=== PATIENT | male | born 1995 | race Caucasian/White ===

== ENCOUNTER 2018-09-30 16:13 | Emergency (ER) | payer SELFPAY ==
[~2018-09-30] VITALS: Ht 175.3 cm; Wt 98.4 kg
[~2018-09-30 16:13] MED LIST: SULF-222 PO
--- NOTE | 2018-09-30 17:28 | Diagnostic Imaging Report ---
INDICATION: Productive cough x 2 weeks. EXAMINATION: PA and lateral chest were obtained at 5:37 p.m. COMPARISON: 06/25/2018. FINDINGS: Heart and mediastinal silhouette are normal in appearance. The lungs are clear. There is no pneumothorax or pleural fluid. IMPRESSION: Negative chest. Dictated by: Dictated on workstation # [id number]
--- NOTE | 2018-09-30 17:52 | ED Cough/URI ---
General Chief Complaint: Respiratory Problems Stated Complaint: COUGHING PHLEM; CONGESTION Nursing Triage Note: PT AMB TO ROOM #6 W/O DIFFICULTY. A&OX4. C/O CONGESTION WITH COUGH FOR APPROX 3WKS. PT REPORTS HE HAS BEEN COUGHING UP GREEN PHLEGM WITH "RED STREAKS" FOR APPROX 1 WK. DENIES GI/ SYMPTOMS. DENIES RECENT FEVER. Source: patient Exam Limitations: no limitations History of Present Illness Date Seen by Provider: Sep 30, 2018 Time Seen by Provider: 16:35 Initial Comments 23 year old male patient who presents the emergency room with complains of congestion and cough for 3 weeks. He reports that he has had cough and phlegm for 1 week. Denies Fevers or shortness of breath. Timing/Duration: week (3 weeks) Severity/Quality: mild, productive cough Prior Episodes/Possible Cause: no prior episodes Associated Symptoms: cough, nasal congestion, nasal drainage Allergies and Home Medications Allergies Coded Allergies: No Known Drug Allergies (Unverified , 06/25/18) Home Medications Sulfamethoxazole/Trimethoprim 1 Each Tablet, 1 EACH PO BID Prescribed by: LETTY CHAVES on 06/25/18 0140 Patient Home Medication List Home Medication List Reviewed: Yes Review of Systems Review of Systems Constitutional: no symptoms reported, see HPI Respiratory: see HPI, cough, phlegm All Other Systems Reviewed Negative Unless Noted: Yes Past Soiycwi-Crahgo-Aisogs Hx Past Med/Social Hx: Reviewed Nursing Past Med/Soc Hx Patient Social History Alcohol Use: Occasionally Uses Number of Drinks Today: AA Alcohol Beverage of Choice: Beer Recreational Drug Use: Yes Drug of Choice: THC Smoking Status: Current Everyday Smoker Type Used: Cigarettes 2nd Hand Smoke Exposure: Yes Recent Foreign Travel: No Contact w/Someone Who Travel: No Recent Infectious Disease Expo: No Recent Hopitalizations: No Physical Abuse: No Sexual Abuse: No Immunizations Up To Date Tetanus Booster (TDap): Unknown Seasonal Allergies Seasonal Allergies: No Past Medical History Surgeries: Yes Orthopedic Respiratory: Yes Pneumonia Currently Using CPAP: No Currently Using BIPAP: No Cardiac: No Neurological: No Genitourinary: No Gastrointestinal: No Musculoskeletal: No Endocrine: No HEENT: No Cancer: No Psychosocial: No Integumentary: Yes Recent Skin Changes Blood Disorders: No Family Medical History Reviewed Nursing Family Hx Physical Exam Vital Signs - First Documented 09/30/18 16:36 Temp 99.0 Pulse 77 Resp 18 B/P (MAP) 140/85 (103) Pulse Ox 99 O2 Delivery Room Air Capillary Refill : Less Than 3 Seconds Height: 5'9.00" Weight: 217lbs. oz. 98.423769jv; BMI Method:Stated General Appearance: WD/WN, no apparent distress HEENT: PERRL/EOMI, normal ENT inspection, TMs normal, pharynx normal Respiratory: chest non-tender, lungs clear, normal breath sounds, no respiratory distress, no accessory muscle use, respiratory distress Cardiovascular: normal peripheral pulses, regular rate, rhythm, no edema, no gallop, no JVD, no murmur Extremities: normal capillary refill Neurologic/Psychiatric: alert, normal mood/affect, oriented x 3 Skin: normal color, warm/dry Progress/Results/Core Measures Suspected Sepsis Recent Fever Within 48 Hours: No Infection Criteria Present: None New/Unexplained Altered Menta: No Sepsis Screen: No Definite Risk SIRS Temperature:99.0 Pulse: 77 Respiratory Rate: 18 Blood Pressure 140 /85 Mean: 103 Results/Orders Micro Results Microbiology 09/30/18 Influenza Types A,B Antigen (SONNY) - Final, Complete My Orders Orders - DANIEL BAH Influenza A And B Antigens (09/30/18 16:42) Chest Pa/Lat (2 View) (09/30/18 16:43) Vital Signs/I&O 09/30/18 09/30/18 16:36 18:06 Temp 99.0 99.0 Pulse 77 67 Resp 18 18 B/P (MAP) 140/85 (103) 140/85 (103) Pulse Ox 99 99 O2 Delivery Room Air Room Air Capillary Refill : Less Than 3 Seconds Blood Pressure Mean: 103 Progress Note : Time: 17:51 Progress Note I have seen and evaluated the patient. I have informed him of normal imaging studies and laboratory findings. He agrees with plans for discharge. Return precautions were given. Diagnostic Imaging Diagonstic Imaging: Xray Plain Films/CT/US/NM/MRI: chest Comments NAME: ALEX COE [facility] REC#: [id number] PHYSICIAN: DANIEL BAH CC: DANIEL BAH; BRIANDA RUIZ MD Page 1 of 1 RADIOLOGY REPORT VIA [place], [place] CC: DANIEL BAH; BRIANDA RUIZ MD Page 1 of 1 RADIOLOGY REPORT NAME: ALEX COE MED REC#: [id number] PT STATUS: REG ER : 1995 PHYSICIAN: DANIEL BAH ADMIT DATE: 09/30/18/ER Signed Date of Exam: 09/30/18 CHEST PA/LAT (2 VIEW) INDICATION: Productive cough x 2 weeks. EXAMINATION: PA and lateral chest were obtained at 5:37 p.m. COMPARISON: 06/25/2018. FINDINGS: Heart and mediastinal silhouette are normal in appearance. The lungs are clear. There is no pneumothorax or pleural fluid. IMPRESSION: Negative chest. Dictated by: Dictated on workstation # [id number] Dict: 09/30/18 1723 Trans: 09/30/18 1730 Interpreted by: BRIANDA RUIZ MD Electronically signed by: BRIANDA RUIZ MD 09/30/18 1730 Reviewed: Reviewed by Me Departure Impression Primary Impression: Viral illness Disposition: 01 HOME, SELF-CARE Condition: Stable/Unchanged Departure-Patient Inst. Decision time for Depature: 17:51 Referrals: NO,LOCAL PHYSICIAN (PCP) Primary Care Physician Patient Instructions: Cough, Runny Nose, and the Common Cold (DC) Add. Discharge Instructions: You may continue to use [id number] cold cough and flu medications as directed by the bottle. Follow-up with her primary care provider within 1 week for recheck. Return back to the emergency room for any worsening symptoms or concerns as needed. All discharge instructions reviewed with patient and/or family. Voiced understanding. Work/School Note: Work Release Form Date Seen in the Emergency Department: Sep 30, 2018 Return to Work: Sep 30, 2018 Restrictions: No Restrictions DANIEL BAH Sep 30, 2018 17:52
[2018-09-30 18:06] VITALS: BP 140/85
== END 2018-09-30 18:06 | disposition home or self-care (01) ==
LOC: EDUNIT# 16:13 → ER 16:15
DX: B34.9 Viral infection, unspecified (principal); F12.10 Cannabis abuse, uncomplicated; F17.210 Nicotine dependence, cigarettes, uncomplicated; Z87.01 Personal history of pneumonia (recurrent)
CPT/HCPCS: 71046; 87804